=== PATIENT | female | born 1965 | race American Indian/Alaskan Native ===

== ENCOUNTER 2020-04-17 18:38 | Emergency (ER) | payer MEDICARE ==
[2020-04-17] MEDS ORDERED: ASPIRIN 325 MG TAB PO ONE (19:35)
--- NOTE | 2020-04-17 19:41 | Event Note ---
ED Screening Note ED Screening Note: pt presents for CP and SOB that began two days ago she has associated pleuritic CP she has mild diarrhea no fever, n/v mild cough was admitted for COVID 19 on 03/24/2020 PMHx HTN, DM no allergies to meds This initial assessment/diagnostic orders/clinical plan/treatment(s) is/are subject to change based on patients health status, clinical progression and re- assessment by fellow clinical providers in the ED. Further treatment and workup at subsequent clinical providers discretion. Patient/guardian urged not to elope from the ED as their condition may be serious if not clinically assessed and managed. Initial orders include: CP protocol
[2020-04-17 20:16] LABS: Basophils % (Auto) 0.5 % (0.0-1.8); Eosinophils % (Auto) 0.6 % (0.0-4.3); Hematocrit 41.1 % (30.3-42.9); Hemoglobin 13.9 gm/dl (10.1-14.3); Lymphocytes # (Auto) 2.5 K/mm3 (1.2-5.4); Lymphocytes % (Auto) 43.9 % (13.4-35.0); Mean Corpuscular HGB Conc 34 % (30-34); Mean Corpuscular Volume 86 fl (79-97); Monocytes # (Auto) 0.3 K/mm3 (0.0-0.8); Monocytes % (Auto) 5.5 % (0.0-7.3); Platelet Count 187 K/mm3 (140-440); Red Blood Count 4.77 M/mm3 (3.65-5.03)
[2020-04-17 20:36] LABS: Alanine Aminotransferase 54 units/L (7-56); BUN/Creatinine Ratio 26; Blood Urea Nitrogen 18 mg/dL (7-17); Calcium 9.4 mg/dL (8.4-10.2); Hemolysis Index 0
[2020-04-17] MEDS ORDERED: KETOROLAC 30 MG/1 ML INJ IV ONE (21:42)
[2020-04-17] MEDS ORDERED: MORPHINE 4 MG/1 ML INJ IV ONE (21:42)
[2020-04-17] MEDS ORDERED: IPRATROPIUM/ALBUTEROL SULFATE 3 ML AMPUL.NEB IH ONE (21:42)
--- NOTE | 2020-04-17 21:42 | XRay Report ---
CHEST 2 VIEWS INDICATION / CLINICAL INFORMATION: SOB, +covid. COMPARISON: 03/24/2020 FINDINGS: SUPPORT DEVICES: None. HEART / MEDIASTINUM: Stable. LUNGS / PLEURA: No significant pulmonary or pleural abnormality. No pneumothorax. ADDITIONAL FINDINGS: No significant additional findings. IMPRESSION: 1. No acute findings. No significant interval change since 03/24/2020. Signer Name: Benito Mireles MD Signed: 04/17/2020 9:38 PM Workstation Name: [id number]
[2020-04-17] MEDS ORDERED: SODIUM CHLORIDE 0.9% 1000 ML 1,000 ML IV ONE (21:58)
[2020-04-17] MEDS ORDERED: INSULIN REGULAR, HUMAN 100 UNITS/1 ML IV ONE (21:58)
--- NOTE | 2020-04-17 21:59 | Emergency Department Report ---
ED Chest Pain HPI - General Chief Complaint: Chest Pain Stated Complaint: COVID POSITIVE/CHEST PAIN/SOB Time Seen by Provider: 04/17/20 19:40 Source: patient Mode of arrival: Ambulatory Limitations: No Limitations - History of Present Illness Initial Comments: This is a 54-year-old female presents to the emergency department with a complaint of a 2 to 3-day history of midsternal to left-sided chest pain and a 1 day history of shortness of breath. She denies any fever, nausea, vomiting, back pain, diaphoresis. The patient does have a mixed dry and productive cough. The chest discomfort is currently 7 out of 10 in intensity and sharp. It worsens with certain movements of her body and touching the chest wall. Patient has a past medical history of diabetes and hypertension. Patient was admitted here about 3 weeks ago and was found to have COVID-19 on 03/25/2020. She denies any tobacco or illicit drug use. No family history of early heart attack. She has not taken anything for symptoms prior to presentation today. Severity scale (0 -10): 7 - Related Data Previous Rx's Medication Instructions Recorded Last Taken Type Insulin NPH/Regular [NovoLIN 70/30] 35 unit SUB-Q BIDDIAB #2 vial 03/30/20 Unknown Rx amLODIPine 5 mg PO QDAY #30 tablet 03/30/20 Unknown Rx dexAMETHasone [Decadron] 6 mg PO Q24H #6 tablet 03/30/20 Unknown Rx Albuterol Mdi (or & Nicu Only) 2 puff IH QID PRN #8.5 gram 04/17/20 Unknown Rx [ProAir HFA Inhaler] Ibuprofen [Motrin 600 MG tab] 600 mg PO Q8H PRN #20 tablet 04/17/20 Unknown Rx Syringe and Needle,Insulin,1Ml 1 each MC PRN #1 box 04/17/20 Unknown Rx [Insulin Syringe/Needle 1 ML] Allergies Allergy/AdvReac Type Severity Reaction Status Date / Time No Known Allergies Allergy Unverified 03/24/20 22:56 Heart Score - HEART Score History: Slightly suspicious EKG: Normal Age: 45-65 Risk factors: 1-2 risk factors Troponin: < normal limit HEART Score: 2 - Critical Actions Critical Actions: 0-3 pts:0.9-1.7%risk of adverse cardiac event.Candidate for discharge ED Review of Systems ROS: Stated complaint: COVID POSITIVE/CHEST PAIN/SOB Other details as noted in HPI Comment: All other systems reviewed and negative Constitutional: denies: chills, fever Eyes: denies: eye pain, vision change ENT: denies: ear pain, throat pain Respiratory: cough, shortness of breath Cardiovascular: chest pain. denies: edema Gastrointestinal: denies: abdominal pain, vomiting Genitourinary: denies: dysuria, discharge Musculoskeletal: denies: back pain, arthralgia Skin: denies: rash, lesions Neurological: denies: headache, weakness ED Past Medical Hx - Past Medical History Hx Hypertension: Yes Hx Congestive Heart Failure: No Hx Diabetes: Yes Hx Arthritis: Yes Hx Headaches / Migraines: Yes Hx Asthma: Yes Hx COPD: No Hx Tuberculosis: No Hx HIV: No - Social History Smoking Status: Never Smoker Substance Use Type: None - Medications Home Medications: Home Medications Medication Instructions Recorded Confirmed Last Taken Type Insulin NPH/Regular [NovoLIN 70/30] 35 unit SUB-Q BIDDIAB #2 vial 03/30/20 Unknown Rx amLODIPine 5 mg PO QDAY #30 tablet 03/30/20 Unknown Rx dexAMETHasone [Decadron] 6 mg PO Q24H #6 tablet 03/30/20 Unknown Rx Albuterol Mdi (or & Nicu Only) 2 puff IH QID PRN #8.5 gram 04/17/20 Unknown Rx [ProAir HFA Inhaler] Ibuprofen [Motrin 600 MG tab] 600 mg PO Q8H PRN #20 tablet 04/17/20 Unknown Rx Syringe and Needle,Insulin,1Ml 1 each MC PRN #1 box 04/17/20 Unknown Rx [Insulin Syringe/Needle 1 ML] ED Physical Exam - General Limitations: No Limitations - Other Other exam information: GENERAL: The patient is well-developed well-nourished. HENT: Normocephalic. Atraumatic. Patient has moist mucous membranes. EYES: Extraocular motions are intact. NECK: Supple. Trachea is midline. CHEST/LUNGS: Clear to auscultation. No tachypnea or accessory muscle use. There is no respiratory distress noted. There is some reproducible left-sided chest wall tenderness to palpation, but no crepitus or deformity. HEART/CARDIOVASCULAR: Regular. There is no tachycardia. There is no murmur. ABDOMEN: Abdomen is soft, nontender. Patient has normal bowel sounds. SKIN: Skin is warm and dry. NEURO: The patient is awake, alert, and oriented. The patient is cooperative. The patient has no focal neurologic deficits. Normal speech. MUSCULOSKELETAL: There is no tenderness or deformity. There is no limitation range of motion. ED Course Vital Signs 04/17/20 04/17/20 04/17/20 19:27 21:14 22:14 Temperature 98.9 F 97.6 F Pulse Rate 104 H 98 H Pulse Rate [ 96 H Bilateral] Respiratory 18 14 Rate Respiratory 22 Rate [Bilateral ] Blood Pressure 157/93 Blood Pressure 143/82 [Left] O2 Sat by Pulse 96 98 Oximetry 04/17/20 04/17/20 04/17/20 22:18 23:07 23:58 Temperature Pulse Rate 92 H 90 Pulse Rate [ Bilateral] Respiratory 18 17 14 Rate Respiratory Rate [Bilateral ] Blood Pressure Blood Pressure 139/76 140/80 [Left] O2 Sat by Pulse 95 95 Oximetry MICHAEL score - Michael Score Age > 65: (0) No Aspirin use within the Past 7 Days: (0) No 3 or more CAD Risk Factors: (0) No 2 or more Angina events in past 24 hrs: (1) Yes Known CAD with more than 50% Stenosis: (0) No Elevated Cardiac Markers: (0) No ST Deviation Greater than 0.5mm: (0) No MICHAEL Score: 1 ED Medical Decision Making - Lab Data Result diagrams: 04/17/20 19:54 04/17/20 19:54 Lab Results 04/17/20 04/17/20 04/17/20 Range/Units 19:54 19:54 19:54 WBC 5.6 (4.5-11.0) K/mm3 RBC 4.77 (3.65-5.03) M/mm3 Hgb 13.9 (10.1-14.3) gm/dl Hct 41.1 (30.3-42.9) % MCV 86 (79-97) fl MCH 29 (28-32) pg MCHC 34 (30-34) % RDW 14.0 (13.2-15.2) % Plt Count 187 (140-440) K/mm3 Lymph % (Auto) 43.9 H (13.4-35.0) % [place] % (Auto) 5.5 (0.0-7.3) % Eos % (Auto) 0.6 (0.0-4.3) % Baso % (Auto) 0.5 (0.0-1.8) % Lymph # (Auto) 2.5 (1.2-5.4) K/mm3 [place] # (Auto) 0.3 (0.0-0.8) K/mm3 Eos # (Auto) 0.0 (0.0-0.4) K/mm3 Baso # (Auto) 0.0 (0.0-0.1) K/mm3 Seg Neutrophils % 49.5 (40.0-70.0) % Seg Neutrophils # 2.8 (1.8-7.7) K/mm3 D-Dimer < 135.00 (0-234) ng/mlDDU Sodium 133 L (137-145) mmol/L Potassium 3.9 (3.6-5.0) mmol/L Chloride 97.7 L (98-107) mmol/L Carbon Dioxide 21 L (22-30) mmol/L Anion Gap 18 mmol/L BUN 18 H (7-17) mg/dL Creatinine 0.7 (0.6-1.2) mg/dL Estimated GFR > 60 ml/min BUN/Creatinine Ratio 26 % Glucose 479 H (65-100) mg/dL POC Glucose (70-105) mg/dL Calcium 9.4 (8.4-10.2) mg/dL Total Bilirubin 0.30 (0.1-1.2) mg/dL AST 43 H (5-40) units/L ALT 54 (7-56) units/L Alkaline Phosphatase 131 H (35-129) units/L Troponin T < 0.010 (0.00-0.029) ng/mL NT-Pro-B Natriuret Pep (0-900) pg/mL Total Protein 7.1 (6.3-8.2) g/dL Albumin 4.0 (3.9-5) g/dL Albumin/Globulin Ratio 1.3 % 04/17/20 04/17/20 04/17/20 Range/Units 19:54 22:08 22:35 WBC (4.5-11.0) K/mm3 RBC (3.65-5.03) M/mm3 Hgb (10.1-14.3) gm/dl Hct (30.3-42.9) % MCV (79-97) fl MCH (28-32) pg MCHC (30-34) % RDW (13.2-15.2) % Plt Count (140-440) K/mm3 Lymph % (Auto) (13.4-35.0) % [place] % (Auto) (0.0-7.3) % Eos % (Auto) (0.0-4.3) % Baso % (Auto) (0.0-1.8) % Lymph # (Auto) (1.2-5.4) K/mm3 [place] # (Auto) (0.0-0.8) K/mm3 Eos # (Auto) (0.0-0.4) K/mm3 Baso # (Auto) (0.0-0.1) K/mm3 Seg Neutrophils % (40.0-70.0) % Seg Neutrophils # (1.8-7.7) K/mm3 D-Dimer (0-234) ng/mlDDU Sodium (137-145) mmol/L Potassium (3.6-5.0) mmol/L Chloride (98-107) mmol/L Carbon Dioxide (22-30) mmol/L Anion Gap mmol/L BUN (7-17) mg/dL Creatinine (0.6-1.2) mg/dL Estimated GFR ml/min BUN/Creatinine Ratio % Glucose (65-100) mg/dL POC Glucose 343 H (70-105) mg/dL Calcium (8.4-10.2) mg/dL Total Bilirubin (0.1-1.2) mg/dL AST (5-40) units/L ALT (7-56) units/L Alkaline Phosphatase (35-129) units/L Troponin T < 0.010 (0.00-0.029) ng/mL NT-Pro-B Natriuret Pep 19.95 (0-900) pg/mL Total Protein (6.3-8.2) g/dL Albumin (3.9-5) g/dL Albumin/Globulin Ratio % 04/17/20 Range/Units 23:27 WBC (4.5-11.0) K/mm3 RBC (3.65-5.03) M/mm3 Hgb (10.1-14.3) gm/dl Hct (30.3-42.9) % MCV (79-97) fl MCH (28-32) pg MCHC (30-34) % RDW (13.2-15.2) % Plt Count (140-440) K/mm3 Lymph % (Auto) (13.4-35.0) % [place] % (Auto) (0.0-7.3) % Eos % (Auto) (0.0-4.3) % Baso % (Auto) (0.0-1.8) % Lymph # (Auto) (1.2-5.4) K/mm3 [place] # (Auto) (0.0-0.8) K/mm3 Eos # (Auto) (0.0-0.4) K/mm3 Baso # (Auto) (0.0-0.1) K/mm3 Seg Neutrophils % (40.0-70.0) % Seg Neutrophils # (1.8-7.7) K/mm3 D-Dimer (0-234) ng/mlDDU Sodium (137-145) mmol/L Potassium (3.6-5.0) mmol/L Chloride (98-107) mmol/L Carbon Dioxide (22-30) mmol/L Anion Gap mmol/L BUN (7-17) mg/dL Creatinine (0.6-1.2) mg/dL Estimated GFR ml/min BUN/Creatinine Ratio % Glucose (65-100) mg/dL POC Glucose 228 H (70-105) mg/dL Calcium (8.4-10.2) mg/dL Total Bilirubin (0.1-1.2) mg/dL AST (5-40) units/L ALT (7-56) units/L Alkaline Phosphatase (35-129) units/L Troponin T (0.00-0.029) ng/mL NT-Pro-B Natriuret Pep (0-900) pg/mL Total Protein (6.3-8.2) g/dL Albumin (3.9-5) g/dL Albumin/Globulin Ratio % - EKG Data -: EKG Interpreted by [place] EKG shows normal: sinus rhythm, axis, intervals, QRS complexes, ST-T waves Rate: tachycardia (104 bpm) - EKG Data When compared to previous EKG there are: no significant change Interpretation: unchanged when compared t (03/24/20) - Radiology Data Radiology results: image reviewed interpreted by me: Chest x-ray does not show any acute process. There are no pleural effusions, obvious pneumonia and there is no pneumothorax. No significant cardiomegaly. - Medical Decision Making This patient presents to the emergency department with complaint of a few days of intermittent midsternal left-sided chest pain, and a 1 day history of some mild shortness of breath. On examination the patient has normal sounding heart and lungs to auscultation and does not appear in any respiratory or acute distress. EKG was essentially normal and did not show any morphology consistent with ST elevation myocardial infarction or any dysrhythmia. Chest x-ray does not show any pneumonia, pleural effusions, pneumothorax, or any acute process. The patient does present with some hyperglycemia with a blood sugar of about 450. However, there is no elevation in the anion gap and she does not appear in diabetic ketoacidosis. She was given some IV fluid resuscitation and a dose of IV insulin and upon reevaluation the blood sugar is down to about 220 on Accu- Chek. The rest the patient's labs are mostly unremarkable including CBC, metabolic panel and negative troponins x2, as well as a negative D-dimer level. The patient was given a DuoNeb breathing treatment, NSAIDs, and a dose of IV analgesia. Upon reevaluation she is feeling greatly improved. She is low on th e heart and MICHAEL score. For all these reasons the patient appears safe for discharge home at this time. She has an appointment coming up with her primary care physician. Her contact information has been sent over to the [facility], and someone from their office should be contacting her shortly for close outpatient follow-up as per our hospitals low risk chest pain protocol. We discussed dietary changes including low sugar, carbohydrates and starches in her diet, and keeping a blood sugar log. She will return to the emergency department with any worsening of her symptoms or with any acute distress. Critical Care Time: No Critical care attestation.: If time is entered above; I have spent that time in minutes in the direct care of this critically ill patient, excluding procedure time. ED Disposition Clinical Impression: Hyperglycemia Chest pain Qualifiers: Chest pain type: unspecified Qualified Code(s): R07.9 - Chest pain, unspecified Disposition: DC-01 TO HOME OR SELFCARE Is pt being admited?: No Condition: Stable Instructions: Nonspecific Chest Pain, Adult, Hyperglycemia, Blood Glucose Monitoring, Adult, Chest Pain (ED) Additional Instructions: Please follow-up with your primary care physician as previously scheduled. I am sending your contact information to the [facility], and someone from their office should be contacting you shortly for close outpatient follow-up. Just in case, I am giving you a referral for one of their cardiologists, Dr. Diop. Try to stay away from foods that are high in sugar, carbohydrates and starches. Keep a blood sugar log. Return to the emergency department with any worsening of your symptoms, new or concerning symptoms not addressed during this current emergency department visit, or with any acute distress. Prescriptions: Syringe and Needle,Insulin,1Ml [Insulin Syringe/Needle 1 ML] 1 each MC PRN #1 box Ibuprofen [Motrin 600 MG tab] 600 mg PO Q8H PRN #20 tablet PRN Reason: Pain Albuterol Mdi (or & Nicu Only) [ProAir HFA Inhaler] 2 puff IH QID PRN #8.5 gram PRN Reason: Shortness Of Breath Referrals: PRIMARY CARE, [Primary Care Provider] - 3-5 Days CLAUDIA DIOP MD [Staff Physician] - 3-5 Days Time of Disposition: 23:31
[2020-04-17 23:59] VITALS: BP 140/80
== END 2020-04-17 23:58 | disposition home or self-care (01) ==
LOC: ED 18:38
DX: R07.89 Other chest pain (principal); E11.65 Type 2 diabetes mellitus with hyperglycemia; I10 Essential (primary) hypertension; M19.91 Primary osteoarthritis, unspecified site; G43.909 Migraine, unspecified, not intractable, without status migrainosus; J45.909 Unspecified asthma, uncomplicated; Z79.4 Long term (current) use of insulin; Z79.899 Other long term (current) drug therapy
CPT/HCPCS: 36415; 71046; 80053; 82962; 83880; 84484; 85025; 85379; 93005; 94640; 96361; 96374; 96375; 99284; J1885; J2270; J7030; 94644; J1815